=== PATIENT | female | born 1975 | race Caucasian/White ===

== ENCOUNTER 2016-11-02 00:01 | Inpatient (IN) | payer OTHER ==
[~2016-11-02] VITALS: Ht 167.6 cm; Wt 70.8 kg
[~2016-11-02 00:01] MED LIST: CELEBREX200 MG PO; FENTANYL1 EAC4; FLOMAX0.4 MG PO; KLONOPIN0.5 M1 PO; LEVAQUIN500 MG PO; LEXAPRO10 MG PO; LYRICA225 MG PO; OPANA ER15 MG PO; PERCOCET 10/1 TABLET PO; ROPINIROLE HCL2 M1; SERTRALINE HCL100 MG PO; TRAMADOL HCL50 MG PO; XANAX0.125 MG PO
[2016-11-02 01:25] LABS: ADD MIUA? YES; BILIRUBIN NEGATIVE; BLOOD MODERATE; COLOR YELLOW ((YELLOW)); GLUCOSE (STRIP) NEGATIVE; KETONES NEGATIVE; LEUKOCYTES NEGATIVE; NITRITE NEGATIVE; PROTEIN (STRIP) NEGATIVE; SPECIFIC GRAVITY 1.023 (1.000-1.030); UROBILINOGEN 0.2 MG/DL (0.2-1.0)
[2016-11-02 01:26] LABS: HEMATOCRIT 38.4 % (36.0-46.0); MCH 30.1 PG (29.0-34.0); MCHC 34.4 G/DL (30.0-36.0); MCV 87.7 FL (83-99); MEAN PLAT.VOLUME 9.6 uM^3 (9.5-12.4); PLATELET COUNT 239 K/uL (156-360); RBC DIS.WIDTH-CV 12.1 % (11.8-14.6); RBC DIS.WIDTH-SD 39.1 % (39-53); RED BLOOD COUNT 4.38 M/uL (3.80-5.20); WHITE BLOOD COUNT 6.8 K/uL (4.1-10.2)
[2016-11-02 01:30] LABS: BACTERIA RARE /HPF; CALCIUM OXALATE CRYSTALS 3+ /HPF; EPITHELIAL CELLS 2+ /HPF; MUCUS TRACE /LPF; UCUL ADDED? NO; WHITE BLOOD CELLS 0-5 /HPF (0-5)
[2016-11-02 01:39] LABS: CHLORIDE 103 mEq/L (99-109); POTASSIUM 3.7 mEq/L (3.7-5.4); SODIUM 137 mEq/L (136-147)
[2016-11-02 01:41] LABS: GLUCOSE 107 mg/dL (70-99)
[2016-11-02 01:42] LABS: ANION GAP 8 MEQ/L (2-14)
[2016-11-02 01:44] LABS: SERUM ETHYL ALCOHOL < 10 mg/dL
[2016-11-02 01:45] LABS: GFR ESTIMATE (CALCULATED) > 59 mL/min/
[2016-11-02 01:46] LABS: UREA NITROGEN (BUN) 11 mg/dL (9-23)
[2016-11-02 01:53] LABS: QUANTITATIVE HCG < 4.0 MIU/ML
[2016-11-02 03:42] LABS: AMPHETAMINE NEGATIVE (500 ng/mL); BARBITURATES NEGATIVE (200 ng/mL); BENZODIAZEPINES NEGATIVE (150 ng/mL); COCAINE PRESUMPTIVE POSITIVE (150 ng/mL); INTERNAL CONTROLS VALID? YES; METHADONE NEGATIVE (200 ng/mL); METHAMPHETAMINE NEGATIVE (500 ng/mL); OPIATES (MORPHINE) NEGATIVE (100 ng/mL); OXYCODONE PRESUMPTIVE POSITIVE (100 ng/mL); PHENCYCLIDINE NEGATIVE (25 ng/mL); PROPOXYPHENE NEGATIVE (300 ng/mL); THC CANNABINOIDS NEGATIVE (50 ng/mL); TRICYCLIC ANTIDEPRESSANTS NEGATIVE (300 ng/mL)
[2016-11-02 03:43] VITALS: BP 119/82
[2016-11-02 03:43] LABS: ADD MEDTOX COMMENT Y
[2016-11-02 07:44] VITALS: BP 128/85
[2016-11-02 15:48] VITALS: BP 123/76
[2016-11-03 07:43] VITALS: BP 104/61
[2016-11-03 15:23] VITALS: BP 116/74
[2016-11-03 21:52] VITALS: BP 104/71
[2016-11-04 07:54] VITALS: BP 118/73
== END 2016-11-04 13:00 | disposition home or self-care (01) | DRG 881 ==
LOC: EME 00:01 → EDOF 02:00 → 1WEST 02:00 → ENRESERV 02:27 → 1WEST 03:36
PROVIDERS: Emergency Medicine
DX: F32.9 Major depressive disorder, single episode, unspecified (principal); R45.851 Suicidal ideations; F11.23 Opioid dependence with withdrawal; F14.10 Cocaine abuse, uncomplicated; G89.29 Other chronic pain; M79.7 Fibromyalgia; M48.00 Spinal stenosis, site unspecified; R31.9 Hematuria, unspecified; F17.200 Nicotine dependence, unspecified, uncomplicated; Z81.8 Family history of other mental and behavioral disorders
CPT/HCPCS: 71020; 80048; 81003; 84702; 84999; 85027; 87493; 90839; 97150 GO; 97165 GO; 99281; 99285; G0480; J0572; J0574; Q0177